=== PATIENT | female | born 1950 | race Two or more races ===

== ENCOUNTER 2022-02-01 11:45 | Inpatient (IN) | payer OTHER ==
[~2022-02-01] VITALS: Ht 149.9 cm; Wt 44.9 kg
[2022-02-01] MEDS ORDERED: BUSPIRONE HCL10 MG PO (14:58)
[2022-02-01] MEDS ORDERED: COZAAR50 MG PO (14:58)
[2022-02-01] MEDS ORDERED: CATAPRES0.3 MG PO (14:58)
[2022-02-01] MEDS ORDERED: INTEGRA PLUS C1 EACH PO (14:59)
[2022-02-05] MEDS ORDERED: CLONIDINE HCL0.1 MG (08:14)
[2022-02-05] MEDS ORDERED: HYDRODIURIL12.5 MG (08:14)
[2022-02-08] MEDS ORDERED: LEVSIN/SL0.125 MG SL ×2 (17:15)
[2022-02-08] MEDS ORDERED: INTEGRA PLUS C1 EACH PO ×2 (17:16)
[2022-02-08] MEDS ORDERED: NEURONTIN300 MG PO ×2 (17:18)
[2022-02-09] MEDS ORDERED: PEPCID20 MG PO (21:23)
== END 2022-02-08 22:10 | disposition home or self-care (01) | DRG 331 ==
LOC: SURH 02-04 06:09 → O/R 02-04 06:09 → SURH 02-04 08:45
PROVIDERS: ADMIT Surgery; ATTEND Surgery
PROC: 07BB4ZZ Excision of Mesenteric Lymphatic, Percutaneous Endoscopic Approach (ICD-10-PCS; 2022-02-04)
PROC: 0DBU4ZZ Excision of Omentum, Percutaneous Endoscopic Approach (ICD-10-PCS; 2022-02-04)
PROC: 4A12X4Z Monitoring of Cardiac Electrical Activity, External Approach (ICD-10-PCS; 2022-02-04)
PROC: 0DTF4ZZ Resection of Right Large Intestine, Percutaneous Endoscopic Approach (ICD-10-PCS; principal; 2022-02-04 08:45)
DX: C18.2 Malignant neoplasm of ascending colon (principal); D50.0 Iron deficiency anemia secondary to blood loss (chronic); Z20.822 Contact with and (suspected) exposure to COVID-19

== ENCOUNTER 2022-02-09 20:19 | Emergency (ER) | payer OTHER ==
[~2022-02-09] VITALS: Ht 149.9 cm; Wt 44.9 kg
[~2022-02-09 20:19] MED LIST: BUSPIRONE HCL10 MG PO; CATAPRES0.3 MG PO; CLONIDINE HCL0.1 MG; COZAAR50 MG PO; HYDRODIURIL12.5 MG; INTEGRA PLUS C1 EACH PO; LEVSIN/SL0.125 MG SL; NEURONTIN300 MG PO
[2022-02-09] MEDS ORDERED: PEPCID20 MG PO (21:23)
== END 2022-02-10 09:19 ==
LOC: ER 20:19
DX: S39.91XA Unspecified injury of abdomen, initial encounter (principal); W18.31XA Fall on same level due to stepping on an object, initial encounter; Y93.9 Activity, unspecified; Y92.019 Unspecified place in single-family (private) house as the place of occurrence of the external cause; Z88.6 Allergy status to analgesic agent; Z88.8 Allergy status to other drugs, medicaments and biological substances; I10 Essential (primary) hypertension

== ENCOUNTER 2022-02-15 10:44 | Inpatient (IN) | payer OTHER ==
[~2022-02-15] VITALS: Ht 121.9 cm; Wt 44.9 kg
[~2022-02-15 10:44] MED LIST changes: +PEPCID20 MG PO
--- NOTE | 2022-02-15 11:47 | NUR ---
SE RECIBE PTE ALERTA Y ORIENTADA X3,TRANSFERIDA DE [facility] HUMACAO CON TUBO NASOGASTRICO. REFIERE DOLOR ABDOMINAL.PTE POST OPERATORIA DE OBSTRUCCION ABDOMINAL DEL 02/04/22.
--- NOTE | 2022-02-15 13:02 | NUR ---
PACIENTE EVALUADO POR EL QUIEN ORDENA TRATAMIENTO. PTE CON NASOGASTRICO DE TRANSFER HUMACAO Y VENOPUNCION DE AMBULANCIA. SE REALIZAN MUESTRAS BAJO MEDIDAS ASEPTOICAS Y SE ADMINISTRAN MEDICAMENTOS. SE HACE ENTREGA DE U/A.
== END 2022-03-14 10:49 | disposition expired | DRG 388 ==
LOC: ER 10:44 → SURH 18:06 → ICU 02-18 21:20
PROVIDERS: ADMIT Surgery; ATTEND Surgery
PROC: BW21YZZ Computerized Tomography (CT Scan) of Abdomen and Pelvis using Other Contrast (ICD-10-PCS; 2022-02-16)
PROC: 5A1955Z Respiratory Ventilation, Greater than 96 Consecutive Hours (ICD-10-PCS; 2022-02-17)
PROC: 0BH13EZ Insertion of Endotracheal Airway into Trachea, Percutaneous Approach (ICD-10-PCS; 2022-02-17)
PROC: 3E0433Z Introduction of Anti-inflammatory into Central Vein, Percutaneous Approach (ICD-10-PCS; 2022-02-17)
PROC: 4A12X4Z Monitoring of Cardiac Electrical Activity, External Approach (ICD-10-PCS; 2022-02-17)
PROC: 02HV33Z Insertion of Infusion Device into Superior Vena Cava, Percutaneous Approach (ICD-10-PCS; 2022-02-17)
PROC: XW043E5 Introduction of Remdesivir Anti-infective into Central Vein, Percutaneous Approach, New Technology Group 5 (ICD-10-PCS; principal; 2022-02-20)
PROC: 8E0ZXY6 Isolation (ICD-10-PCS; 2022-02-20)
PROC: 30243N1 Transfusion of Nonautologous Red Blood Cells into Central Vein, Percutaneous Approach (ICD-10-PCS; 2022-02-20)
PROC: 0W9G30Z Drainage of Peritoneal Cavity with Drainage Device, Percutaneous Approach (ICD-10-PCS; 2022-03-02)
PROC: BW24YZZ Computerized Tomography (CT Scan) of Chest and Abdomen using Other Contrast (ICD-10-PCS; 2022-03-02)
PROC: BW21YZZ Computerized Tomography (CT Scan) of Abdomen and Pelvis using Other Contrast (ICD-10-PCS; 2022-03-02)
PROC: BW28ZZZ Computerized Tomography (CT Scan) of Head (ICD-10-PCS; 2022-03-09)
DX: K56.0 Paralytic ileus (principal); A41.51 Sepsis due to Escherichia coli [E. coli]; B37.1 Pulmonary candidiasis; J96.90 Respiratory failure, unspecified, unspecified whether with hypoxia or hypercapnia; U07.1 COVID-19; K65.9 Peritonitis, unspecified; R65.20 Severe sepsis without septic shock; K28.1 Acute gastrojejunal ulcer with perforation; J12.82 Pneumonia due to coronavirus disease 2019; I61.9 Nontraumatic intracerebral hemorrhage, unspecified; K27.1 Acute peptic ulcer, site unspecified, with perforation; J90 Pleural effusion, not elsewhere classified; J98.11 Atelectasis; C18.2 Malignant neoplasm of ascending colon; K66.8 Other specified disorders of peritoneum; B96.1 Klebsiella pneumoniae [K. pneumoniae] as the cause of diseases classified elsewhere; B96.20 Unspecified Escherichia coli [E. coli] as the cause of diseases classified elsewhere; B95.2 Enterococcus as the cause of diseases classified elsewhere; K52.9 Noninfective gastroenteritis and colitis, unspecified